=== PATIENT | female | born 1960 | race Caucasian/White ===

== ENCOUNTER 2023-12-16 18:04 | Inpatient (IN) | payer MEDICARE, BC ==
[~2023-12-16] VITALS: Ht 177.8 cm; Wt 99.8 kg
[2023-12-16] MEDS ORDERED: PIPERACILLIN SODIUM/TAZOBACTAM 3.375 G in IV DEXTROSE 5% 50 ML IV ONE (19:00)
[2023-12-16] MEDS ORDERED: PIPERACILLIN/TAZOBACTAM/D5W 50 ML IV ONE ×4 (19:12→23:59)
[2023-12-16 19:37] LABS: BASOPHILS # (AUTO) 0.2 K/UL (0.0-0.2); BASOPHILS % (AUTO) 1.4 % (0.0-2.0); HEMATOCRIT 33.7 % (31.2-41.9); HEMOGLOBIN 10.4 g/dL (10.9-14.3); LYMPHOCYTES # (AUTO) 0.6 K/uL (0.8-4.8); LYMPHOCYTES % (AUTO) 3.8 % (20.5-51.5); MEAN CORPUSCULAR HEMOGLOBIN 25.4 uug (24.7-32.8); MEAN CORPUSCULAR HGB CONC 31 g/dL (32.3-35.6); MEAN CORPUSCULAR VOLUME 82.6 fL (75.5-95.3); MONOCYTES # (AUTO) 0.6 K/uL (0.1-1.30); MONOCYTES % (AUTO) 3.8 % (0.0-11.0); NEUTROPHILS # (AUTO) 14.8 K/uL (1.8-8.9); PLATELET COUNT (AUTO) 265 K/uL (179-408); RED BLOOD CELL COUNT(AUTO) 4.08 MIL/uL (3.63-4.92); RED CELL DISTRIBUTION WIDTH 17.6 % (12.3-17.7); WHITE BLOOD COUNT (AUTO) 16.3 K/uL (3.8-11.8)
[2023-12-16] MEDS: levoFLOXacin 500 MG/D5W 100ML PIGGYBACK IV ONE (19:40)
[2023-12-16 19:43] LABS: DIFFERENTIAL COMMENT 1
[2023-12-16] MEDS ORDERED: levoFLOXacin 500 MG/D5W 100 ML ONE (19:44)
[2023-12-16 19:52] LABS: ALBUMIN 2.3 g/dL (3.4-5.0); BILIRUBIN,TOTAL 0.6 mg/dL (0.2-1.0); CALCIUM 8.9 mg/dL (8.5-10.1); CREATININE 2.2 mg/dL (0.6-1.3); POTASSIUM 4.9 mmol/L (3.5-5.1); TOTAL PROTEIN, SERUM 7.8 g/dL (6.4-8.2)
[2023-12-16 21:22] LABS: *BLOOD, URINE 2+ (NEGATIVE); *CLARITY,URINE CLOUDY (CLEAR); *COLOR,URINE YELLOW (YELLOW); *KETONES,URINE NEGATIVE (NEGATIVE); *UROBILINOGEN,URINE 0.2 E.U./dl (NORMAL); NITRITE, URINE POSITIVE (NEGATIVE); PH,URINE 5.5 (5.0-8.0); UGLUCOSE NEGATIVE (NEGATIVE)
[2023-12-16 21:27] LABS: *PROTEIN,URINE 3+ (NEGATIVE)
[2023-12-16 21:28] LABS: *BILIRUBIN,URIN 1+ (NEGATIVE); LEUKOCYTE ESTERASE ,URINE 1+ (NEGATIVE)
[2023-12-16 21:29] LABS: BACTERIA,URINE FEW /HPF (NONE SEEN)
[2023-12-16] MEDS ORDERED: DEXTROSE 50% 50 ML DISP.SYRIN IV PRN (23:15)
[2023-12-16] MEDS ORDERED: MAGNESIUM HYDROXIDE 30 ML LIQUID UDC PO PRN (23:15)
[2023-12-16] MEDS ORDERED: REMEDY ESSENTIAL ZINC PASTE 113 GM TP PRN (23:15)
[2023-12-16] MEDS ORDERED: ONDANSETRON 4 MG/2 ML VIAL IV PRN (23:15)
[2023-12-16] MEDS ORDERED: ACETAMINOPHEN 325 MG TABLET PO PRN (23:15)
[2023-12-17] VITALS (7 sets, daily range): BP systolic 102–149; BP diastolic 47–68; TEMP 97.7–99.2; O2SAT 93–98
[2023-12-17] MEDS ORDERED: PIPERACILLIN SODIUM/TAZOBACTAM 3.375 G in IV DEXTROSE 5% 50 ML IV SCH
[2023-12-17] MEDS: ENOXAPARIN SODIUM 30 MG/0.3 ML DISP.SYRIN SQ SCH (01:11)
[2023-12-17] MEDS: IV NS 1000 ML 1,000 ML IV PRN (01:22)
[2023-12-17] MEDS ORDERED: VANCOMYCIN 1000 MG VIAL ONE (01:33)
[2023-12-17] MEDS: VANCOMYCIN IV 1,750 MG in IV DEXTROSE 5% 500 ML IV ONE (01:45)
[2023-12-17] MEDS: BLOOD SUGAR DIAGNOSTIC 1 EACH STRIP VI SCH (06:35)
[2023-12-17] MEDS: PANTOPRAZOLE SODIUM 40 MG TABLET.DR PO SCH (06:36)
[2023-12-17 07:11] LABS: BASOPHILS # (AUTO) 0.1 K/UL (0.0-0.2); BASOPHILS % (AUTO) 0.7 % (0.0-2.0); EOSINOPHILS % (AUTO) 0.2 % (0.0-7.0); HEMATOCRIT 28.7 % (31.2-41.9); HEMOGLOBIN 9.2 g/dL (10.9-14.3); LYMPHOCYTES # (AUTO) 1.1 K/uL (0.8-4.8); LYMPHOCYTES % (AUTO) 8.1 % (20.5-51.5); MEAN CORPUSCULAR HEMOGLOBIN 25.7 uug (24.7-32.8); MEAN CORPUSCULAR HGB CONC 32 g/dL (32.3-35.6); MEAN CORPUSCULAR VOLUME 80.6 fL (75.5-95.3); MONOCYTES # (AUTO) 0.9 K/uL (0.1-1.30); MONOCYTES % (AUTO) 6.5 % (0.0-11.0); NEUTROPHILS # (AUTO) 11.5 K/uL (1.8-8.9); NEUTROPHILS % (AUTO) 84.5 % (38.5-71.5); PLATELET COUNT (AUTO) 245 K/uL (179-408); RED BLOOD CELL COUNT(AUTO) 3.57 MIL/uL (3.63-4.92); RED CELL DISTRIBUTION WIDTH 17.7 % (12.3-17.7); WHITE BLOOD COUNT (AUTO) 13.5 K/uL (3.8-11.8)
[2023-12-17 07:21] LABS: DIFFERENTIAL COMMENT 1
[2023-12-17 07:25] LABS: CALCIUM 8.4 mg/dL (8.5-10.1); MAGNESIUM 2.3 mg/dL (1.8-2.4); PHOSPHOROUS 3.7 mg/dL (2.5-4.9); POTASSIUM 4.8 mmol/L (3.5-5.1)
[2023-12-17] MEDS: CEFEPIME HCL 2 GM in IV DEXTROSE 5% 100 ML IV SCH (09:54)
[2023-12-17] MEDS: VANCOMYCIN IV 1,250 MG in IV DEXTROSE 5% 250 ML IV ONE (17:33)
[2023-12-17] MEDS: INSULIN REGULAR, HUMAN 300 UNITS/3 ML VIAL SQ PRN (20:11)
[2023-12-17] MEDS: INSULIN REGULAR, HUMAN 300 UNIT/3 ML VIAL SQ PRN (20:11)
[2023-12-18 04:42] VITALS: O2SAT 99
[2023-12-18 06:00] VITALS: BP 154/77; TEMP 98.1; O2SAT 96
[2023-12-18 07:41] LABS: BASOPHILS % (AUTO) 0.2 % (0.0-2.0); EOSINOPHILS # (AUTO) 0.1 K/uL (0.0-0.7); EOSINOPHILS % (AUTO) 0.9 % (0.0-7.0); HEMATOCRIT 27.6 % (31.2-41.9); HEMOGLOBIN 8.8 g/dL (10.9-14.3); LYMPHOCYTES # (AUTO) 0.7 K/uL (0.8-4.8); LYMPHOCYTES % (AUTO) 7.2 % (20.5-51.5); MEAN CORPUSCULAR HEMOGLOBIN 25.9 uug (24.7-32.8); MEAN CORPUSCULAR HGB CONC 32 g/dL (32.3-35.6); MEAN CORPUSCULAR VOLUME 81.2 fL (75.5-95.3); MONOCYTES # (AUTO) 0.8 K/uL (0.1-1.30); MONOCYTES % (AUTO) 8.7 % (0.0-11.0); NEUTROPHILS # (AUTO) 7.8 K/uL (1.8-8.9); PLATELET COUNT (AUTO) 195 K/uL (179-408); RED BLOOD CELL COUNT(AUTO) 3.39 MIL/uL (3.63-4.92); RED CELL DISTRIBUTION WIDTH 17.7 % (12.3-17.7); WHITE BLOOD COUNT (AUTO) 9.4 K/uL (3.8-11.8)
[2023-12-18 07:45] LABS: DIFFERENTIAL COMMENT 1
[2023-12-18 08:13] LABS: ALBUMIN 1.8 g/dL (3.4-5.0); BILIRUBIN,TOTAL 0.5 mg/dL (0.2-1.0); CALCIUM 8.3 mg/dL (8.5-10.1); MAGNESIUM 2.4 mg/dL (1.8-2.4); PHOSPHOROUS 3.9 mg/dL (2.5-4.9); POTASSIUM 4.6 mmol/L (3.5-5.1); TOTAL PROTEIN, SERUM 6.5 g/dL (6.4-8.2); VANCOMYCIN,RANDOM 22.5 ug/mL (20.0-30.0)
[2023-12-18] MEDS: PROTEIN SUPPLEMENT (PROSTAT) 30 ML LIQUID PO SCH (09:03)
[2023-12-18] MEDS: ARGININE/GLUTAMINE/CALCIUM BMB 1 EACH POWD.PACK PO SCH (09:03)
[2023-12-18] MEDS: MUPIROCIN 2% OINT 22 GM TUBE TP SCH (09:03)
[2023-12-18] MEDS: SODIUM HYPOCHLORITE 0.125% (QUARTER STRENGTH) 473 ML BOTTLE TP SCH (09:04)
[2023-12-18 12:00] VITALS: BP 157/67; TEMP 97.2; O2SAT 99
[2023-12-18] MEDS ORDERED: ROSU10TA2 PO (13:33)
[2023-12-18] MEDS ORDERED: HYDR-3980 PO (13:34)
[2023-12-18] MEDS ORDERED: ZOLP12.542 PO (13:35)
[2023-12-18] MEDS ORDERED: LISI-782 PO (13:36)
[2023-12-18] MEDS ORDERED: ESCI20TA PO (13:36)
[2023-12-18] MEDS ORDERED: PROP60CA38 PO (13:37)
[2023-12-18 14:40] VITALS: O2SAT 99
[2023-12-18] MEDS: LISINOPRIL 5 MG TABLET PO SCH (18:05)
[2023-12-18] MEDS: ESCITALOPRAM OXALATE 10 MG TABLET PO SCH (18:05)
[2023-12-18] MEDS: glipiZIDE 10 MG TABLET PO SCH (18:37)
[2023-12-18] MEDS: VANCOMYCIN IV 1,250 MG in IV DEXTROSE 5% 250 ML IV SCH (19:46)
[2023-12-18 20:00] VITALS: BP 130/64; TEMP 98.2; O2SAT 100
[2023-12-18] MEDS: ATORVASTATIN 20 MG TABLET PO SCH (20:47)
[2023-12-18] MEDS ORDERED: Medication Not On Formulary EA (Rosuvastatin Calcium (Crestor) 10 MG) PO SCH (21:00)
[2023-12-19 06:00] VITALS: BP 158/72; TEMP 98.3; O2SAT 96
[2023-12-19 06:09] LABS: PTH, INTACT 40 pg/mL (15-65)
[2023-12-19] MEDS ORDERED: Medication Not On Formulary EA (Escitalopram Oxalate (Lexapro) 20 MG) PO SCH (09:00)
[2023-12-19 11:45] VITALS: BP 156/75; TEMP 98.2; O2SAT 96
[2023-12-19 16:12] VITALS: BP 168/78; TEMP 98.2; O2SAT 98
[2023-12-19 16:28] VITALS: O2SAT 98
[2023-12-19] MEDS: VANCOMYCIN IV 1,250 MG in IV DEXTROSE 5% 250 ML IV ONE (18:48)
[2023-12-19 20:36] VITALS: BP 166/85; TEMP 98.2; O2SAT 96
[2023-12-19] MEDS: ACIDOPHILUS/BULGARICUS CHEW TAB PO SCH (20:53)
[2023-12-20 06:08] VITALS: BP 133/76; TEMP 98.5; O2SAT 98
[2023-12-20] MEDS: ZINC SULFATE 220 MG CAPSULE PO SCH (10:01)
[2023-12-20] MEDS: ASCORBIC ACID 500 MG TABLET PO SCH (10:02)
[2023-12-20] MEDS: HYDROCODONE/APAP 10-325 MG TABLET PO PRN (10:25)
[2023-12-20 12:00] VITALS: BP 152/70; TEMP 97.8; O2SAT 98
[2023-12-20 15:40] VITALS: BP 159/61; TEMP 97.6; O2SAT 97
[2023-12-20 20:00] VITALS: BP 170/83; TEMP 97.4; O2SAT 97
[2023-12-20] MEDS ORDERED: levoFLOXacin 500 MG TABLET PO SCH (21:15)
[2023-12-20] MEDS ORDERED: CLINDAMYCIN PHOSPHATE IV 600 MG in IV DEXTROSE 5% 50 ML IV SCH (22:00)
[2023-12-20] MEDS: levoFLOXacin 750 MG TABLET PO SCH (22:08)
[2023-12-20] MEDS: ZOLPIDEM 5 MG TABLET PO PRN (22:14)
[2023-12-21 06:00] VITALS: BP 155/67; TEMP 98.6; O2SAT 93
[2023-12-21] MEDS: LINEZOLID 600 MG TABLET PO SCH (10:31)
[2023-12-21 11:36] LABS: BASOPHILS # (AUTO) 0.1 K/UL (0.0-0.2); BASOPHILS % (AUTO) 0.9 % (0.0-2.0); EOSINOPHILS # (AUTO) 0.2 K/uL (0.0-0.7); EOSINOPHILS % (AUTO) 1.6 % (0.0-7.0); HEMOGLOBIN 9.1 g/dL (10.9-14.3); LYMPHOCYTES # (AUTO) 1.3 K/uL (0.8-4.8); LYMPHOCYTES % (AUTO) 10.2 % (20.5-51.5); MEAN CORPUSCULAR HEMOGLOBIN 25.2 uug (24.7-32.8); MEAN CORPUSCULAR HGB CONC 31 g/dL (32.3-35.6); MEAN CORPUSCULAR VOLUME 80.8 fL (75.5-95.3); MONOCYTES # (AUTO) 0.8 K/uL (0.1-1.30); MONOCYTES % (AUTO) 6.2 % (0.0-11.0); NEUTROPHILS # (AUTO) 10.2 K/uL (1.8-8.9); NEUTROPHILS % (AUTO) 81.1 % (38.5-71.5); PLATELET COUNT (AUTO) 237 K/uL (179-408); RED BLOOD CELL COUNT(AUTO) 3.59 MIL/uL (3.63-4.92); RED CELL DISTRIBUTION WIDTH 17.6 % (12.3-17.7); WHITE BLOOD COUNT (AUTO) 12.6 K/uL (3.8-11.8)
[2023-12-21 11:48] LABS: DIFFERENTIAL COMMENT 1
[2023-12-21 12:02] LABS: ALBUMIN 1.7 g/dL (3.4-5.0); BILIRUBIN,TOTAL 0.3 mg/dL (0.2-1.0); CALCIUM 8.6 mg/dL (8.5-10.1); CREATININE 1.4 mg/dL (0.6-1.3); PHOSPHOROUS 3.5 mg/dL (2.5-4.9); POTASSIUM 4.5 mmol/L (3.5-5.1); TOTAL PROTEIN, SERUM 6.4 g/dL (6.4-8.2)
[2023-12-21 15:58] VITALS: O2SAT 99
[2023-12-21 16:00] VITALS: BP 136/57; TEMP 97; O2SAT 99
[2023-12-21 20:00] VITALS: BP 179/78; TEMP 98.2; O2SAT 100
[2023-12-21] MEDS: LISINOPRIL 5 MG TABLET PO SCH (22:20)
[2023-12-21] MEDS ORDERED: levoFLOXacin 750 MG TABLET PO SCH (22:30)
[2023-12-21 23:11] VITALS: O2SAT 99
[2023-12-22 05:44] VITALS: BP 154/71; TEMP 98.4; O2SAT 98
[2023-12-22 12:00] VITALS: BP 166/67; TEMP 97.7; O2SAT 98
[2023-12-22] MEDS ORDERED: LEVO750T46 PO (13:00)
[2023-12-22] MEDS ORDERED: INSU100V28 SQ ×2 (13:00)
[2023-12-22] MEDS ORDERED: ASCO500T21 PO (13:00)
[2023-12-22] MEDS ORDERED: HYDR-894 PO (13:00)
[2023-12-22] MEDS ORDERED: PANT40TA49 PO (13:00)
[2023-12-22] MEDS ORDERED: DEXT50DI8 IV (13:00)
[2023-12-22] MEDS ORDERED: ZINC1CAP3 PO (13:00)
[2023-12-22] MEDS ORDERED: ACID1TAB4 PO (13:00)
[2023-12-22] MEDS ORDERED: MENT113O TP (13:00)
[2023-12-22] MEDS ORDERED: SODI473S8 TP (13:00)
[2023-12-22] MEDS ORDERED: RIVA10TA PO (13:00)
[2023-12-22] MEDS ORDERED: PROT30LI PO (13:00)
[2023-12-22] MEDS ORDERED: ZOLP5TAB2 PO (13:00)
[2023-12-22] MEDS ORDERED: GLIP10TA11 PO (13:00)
[2023-12-22] MEDS ORDERED: LISI-782 PO (13:00)
[2023-12-22] MEDS ORDERED: HYDR-3980 PO (13:00)
[2023-12-22] MEDS ORDERED: HYDR-3972 PO (13:00)
[2023-12-22] MEDS ORDERED: MUPI22OI2 TP (13:00)
[2023-12-22] MEDS ORDERED: ACET325T53 PO (13:00)
[2023-12-22] MEDS ORDERED: Blood Sugar Diagnostic VI (13:00)
[2023-12-22] MEDS ORDERED: NUTR1PAC14 PO (13:00)
[2023-12-22] MEDS ORDERED: LINE600T15 PO (13:02)
[2023-12-22] MEDS: hydrALAZINE HCL 25 MG TABLET PO PRN (15:33)
[2023-12-22] MEDS: HYDROCODONE/APAP 5-325MG TABLET PO PRN (15:37)
[2023-12-22 16:12] VITALS: BP 169/68; TEMP 98.7; O2SAT 98
[2023-12-23 05:06] LABS: A/G RATIO 0.5 (0.7-1.7); ALPHA-1-GLOBULIN 0.4 g/dL (0.0-0.4); GAMMA GLOBULIN 1.4 g/dL (0.4-1.8); GLOBULIN, TOTAL 3.9 g/dL (2.2-3.9); M-SPIKE Not Observed g/dL (Not Observed)
== END 2023-12-22 17:00 | DRG 853 ==
LOC: ER 18:10 → TELE3 23:00 → MEDSURG3 23:49
PROVIDERS: ATTEND Internal Medicine
PROC: 0KBW0ZZ Excision of Left Foot Muscle, Open Approach (ICD-10-PCS; principal; 2023-12-17)
DX: A41.50 Gram-negative sepsis, unspecified (principal); E43 Unspecified severe protein-calorie malnutrition; I50.31 Acute diastolic (congestive) heart failure; N17.9 Acute kidney failure, unspecified; L97.426 Non-pressure chronic ulcer of left heel and midfoot with bone involvement without evidence of necrosis; M86.8X7 Other osteomyelitis, ankle and foot; N39.0 Urinary tract infection, site not specified; D68.59 Other primary thrombophilia; L03.116 Cellulitis of left lower limb; L02.612 Cutaneous abscess of left foot; L97.423 Non-pressure chronic ulcer of left heel and midfoot with necrosis of muscle; E11.621 Type 2 diabetes mellitus with foot ulcer; Z91.199 Patient's noncompliance with other medical treatment and regimen due to unspecified reason; E11.69 Type 2 diabetes mellitus with other specified complication; E11.65 Type 2 diabetes mellitus with hyperglycemia; E11.42 Type 2 diabetes mellitus with diabetic polyneuropathy; Z74.09 Other reduced mobility; D50.9 Iron deficiency anemia, unspecified; G89.4 Chronic pain syndrome; G31.84 Mild cognitive impairment of uncertain or unknown etiology; Z88.0 Allergy status to penicillin; E66.01 Morbid (severe) obesity due to excess calories; B96.20 Unspecified Escherichia coli [E. coli] as the cause of diseases classified elsewhere; I11.0 Hypertensive heart disease with heart failure
CPT/HCPCS: 36415; 71045; 73630; 76770; 82378; 83550; 83605; 83735; 83970; 84100; 84155; 84165; 85025; 87040; 87077; 93005; 93307; A4606; A4663; A6213; G0378; J0692; J1650; J1815; J1956; J2543; J3370; J3490; J7040; J7050; J7060